=== PATIENT | male | born 1980 | race Caucasian/White ===

== ENCOUNTER 2017-05-30 14:07 | Emergency (ER) | payer SELFPAY ==
[~2017-05-30] VITALS: Ht 177.8 cm; Wt 72.7 kg
[~2017-05-30 14:07] MED LIST: AUGM875T PO; IBUP1TAB7 PO; TRAM50 PO
[2017-05-30 14:08] VITALS: BP 125/70; PULSE 90; RESP 18; TEMP 97.9; O2SAT 98
[2017-05-30] MEDS ORDERED: NAPR500T2 PO (17:01)
[2017-05-30] MEDS ORDERED: ROBA500T PO (17:01)
--- NOTE | 2017-05-30 17:03 | PD ---
HPI . Lower back pain Chief Complaint: Back/ Neck Pain or Injury Time Seen by Provider: 16:39 Travel History International Travel<30 days: No Contact w/Intl Traveler<30days: No Traveled to known affect area: No History of Present Illness HPI 36 year old male patients presents to the emergency department for evaluation of lower back pain that started this afternoon when he was doing housework and texturing his song at home. Patient had been bending and lifting multiple times and states the last time he stood up his lower back cramped up and he has had tremendous pain since that event. He denies any fever, chills, malaise, nausea, vomiting, chest pain, shortness of breath, abdominal pain, incontinence of urine or stool. Patient denies any IV drug use. Patient has no saddle numbness or paresthesias. Patient denies any major medical history and doesn't take any daily medication. 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 Nontoxic appearing. SKIN: Focused skin assessment warm/dry. HEAD: Normocephalic. Atraumatic. EYES: No scleral icterus. No injection or drainage. NECK: Supple, trachea midline. No JVD or lymphadenopathy. CARDIOVASCULAR: Regular rate and rhythm without murmurs, gallops, or rubs. RESPIRATORY: Breath sounds equal bilaterally. No accessory muscle use. GASTROINTESTINAL: Abdomen soft, non-tender, nondistended. MUSCULOSKELETAL: Full range of motion noted in all extremities. No obvious deformity, erythema, ecchymosis, cyanosis, or edema. BACK: Bilateral paraspinal lumbar sacral tenderness. No obvious deformity, ecchymosis, erythema, cyanosis, edema. No CVA tenderness. Data Data Last Documented VS Vital Signs Date Time Temp Pulse Resp B/P (MAP) Pulse Ox O2 Delivery O2 Flow Rate FiO2 05/30/17 14:08 97.9 90 18 125/70 (88) 98 Room Air MDM Medical Decision Making Medical Screen Exam Complete: Yes Emergency Medical Condition: Yes Differential Diagnosis Differential diagnoses include but not limited to muscle spasm, muscle cramps, muscle strain, sprain Narrative Course 36 -year-old male patient presents emergency department for evaluation of lumbar sacral paraspinal lower back pain and muscle spasms. Patient denies any incontinence of urine or stool, saddle numbness, IV drug use, fevers, chills, malaise. Patient was doing housework that required a lot of bending and lifting this afternoon and subsequently developed muscle spasms and back pain. Patient given an IM injection of Toradol and Norflex and our facility and discharged home with prescription for naproxen and Robaxin and instructions to use heating pad and ice packs, follow-up with primary care and return to emergency Department with any worsening condition. Diagnosis Primary Impression: Muscle spasm Referrals: Primary Care Physician Patient Instructions: General Instructions, Muscle Spasm (ED) Additional Instructions: Please return to emergency department if your symptoms return or worsen. Follow up with your primary care provider. Take medications as prescribed. May use heating pad or ice packs for pain management Med/Other Pt SpecificInfo: Prescription(s) given Scripts Methocarbamol (Robaxin) 500 Mg Tab 500 MG PO TID for Muscle Spasm for 6 Days, TAB 0 Refills Prov: Xochilt [place] 05/30/17 Naproxen (Naproxen) 500 Mg Tab 500 MG PO BID, #12 TAB 0 Refills Prov: Xochilt [place] 05/30/17 Disposition: 01 DISCHARGE HOME Condition: Stable Xochilt [place] May 30, 2017 17:03
[2017-05-30] MEDS ORDERED: ORPHENADRINE INJ 60 MG/2 ML AMP IM ONE (17:30)
[2017-05-30] MEDS ORDERED: KETOROLAC TROMETHAMINE 60 MG/2 ML (IM) VIAL IM ONE (17:30)
== END 2017-05-30 17:52 | disposition home or self-care (01) ==
LOC: NEPK 14:07
DX: M62.830 Muscle spasm of back (principal); Z72.0 Tobacco use; Z86.69 Personal history of other diseases of the nervous system and sense organs; X50.1XXA Overexertion from prolonged static or awkward postures, initial encounter; X50.3XXA Overexertion from repetitive movements, initial encounter; Y93.E9 Activity, other interior property and clothing maintenance
CPT/HCPCS: 96372; 99284; J1885; J2360